=== PATIENT | male | born 1985 | race Caucasian/White ===

== ENCOUNTER 2021-09-16 23:30 | Emergency (ER) | payer MEDICAID ==
[~2021-09-16] VITALS: Ht 170.2 cm; Wt 73.0 kg
[2021-09-17] MEDS ORDERED: AMOX-424 MT (01:04)
[2021-09-17] MEDS ORDERED: AMOXICILLIN/POTASSIUM CLAVULANATE 875/125MG TAB PO ONE (01:15)
[2021-09-17 01:42] VITALS: BP 141/92
== END 2021-09-17 01:46 | disposition home or self-care (01) ==
LOC: ER 23:30
DX: K02.9 Dental caries, unspecified (principal)
CPT/HCPCS: 99282